=== PATIENT | male | born 1940 | race Caucasian/White ===

== ENCOUNTER 2016-11-28 08:32 | Inpatient (IN) | payer MEDICARE, BC ==
[~2016-11-28 08:32] MED LIST: Buffered Lidocaine 0.9% SYRIN* 5 ML/SYR SYRINGE INTRADERM ONE; Buffered Lidocaine 0.9% SYRIN* 5 ML/SYR SYRINGE ONE; NS 0.9% 1000 ML* 1,000 ML IV SCH; ceFAZolin 2 GM PREMIX(*) 2 GM/50 ML BAG IVPB ONE
[2016-11-28] MEDS ORDERED: Midazolam* 1 MG/ML 2 ML VIAL (2 MG) ONE ×3 (09:02→11:55)
[2016-11-28] MEDS ORDERED: fentaNYL* 50 MCG/ML 2 ML VIAL (100 MCG VIAL) ONE (09:02)
[2016-11-28] MEDS ORDERED: Bupivacaine 0.25% W/EPI* 50 ML VIAL ONE (10:18)
[2016-11-28] MEDS ORDERED: Morphine PF AMP (0.5MG/ML)* 5 MG/10 ML AMP ONE (10:58)
[2016-11-28] MEDS ORDERED: Bupivacaine 0.5% SDV PF* 30 ML VIAL ONE (11:14)
[2016-11-28] MEDS ORDERED: Famotidine IV* 10 MG/ML 2 ML (20 mg) ONE (11:14)
[2016-11-28] MEDS ORDERED: Dexmedetomidine* 200 MCG/2 ML 2 ML VIAL ONE (11:14)
[2016-11-28] MEDS ORDERED: diPHENhydraMINE IV* 50 MG/ML 1 ml VIAL (BENADRYL) ONE (11:14)
[2016-11-28] MEDS ORDERED: Dexamethasone IV* 4 MG/ML 1 ML (4 MG) ONE (11:20)
[2016-11-28] MEDS ORDERED: Ketorolac INJ* 30 MG/ML 1 ML VIAL ONE (11:20)
[2016-11-28] MEDS ORDERED: Hetastarch in NS* 500 ML IV ONE (11:26)
[2016-11-28] MEDS ORDERED: Bupivacaine 0.25% EPI 200,000* 30 ML SDV ONE (11:34)
[2016-11-28] MEDS ORDERED: HYDROmorphone* 1 MG/ML 1 ML SYR IV PRN (12:14)
[2016-11-28] MEDS ORDERED: Acetaminophen TAB* 325 MG PO PRN (12:14)
[2016-11-28] MEDS ORDERED: fentaNYL* 50 MCG/ML 2 ML VIAL (100 MCG VIAL) IV PRN (12:14)
[2016-11-28] MEDS ORDERED: Ondansetron INJ* 2 MG/ML VIAL IV PRN ×2 (12:14→12:17)
[2016-11-28] MEDS ORDERED: Scopolomine PATCH Remove* 1 NOTE MISC PATCH OFF PRN (12:17)
[2016-11-28] MEDS ORDERED: Ketorolac INJ* 30 MG/ML 1 ML VIAL IV PRN (12:17)
[2016-11-28] MEDS ORDERED: HYDROcodone/ACETAMIN 5-325 MG* 1 TAB PO PRN ×2 (12:17)
[2016-11-28] MEDS ORDERED: Naloxone* 0.4 MG/ML 1 ML VIAL IV PRN (12:17)
[2016-11-28] MEDS ORDERED: Scopolamine 1.5 mg* PATCH TRANSDERM PRN (12:17)
[2016-11-28] MEDS ORDERED: DiMENhydriNATE IV* 50 MG/ML VIAL IV PUSH PRN (12:17)
[2016-11-28] MEDS ORDERED: Polyethylene Glycol 3350* 17 GM PACKET PO PRN (13:26)
[2016-11-28] MEDS ORDERED: Bisacodyl SUPP* 10 MG SUPP PR PRN (13:26)
[2016-11-28] MEDS ORDERED: ceFAZolin VIAL(*) 1 GM in NS 0.9% 50 ML* 50 ML IVPB SCH (14:00)
--- NOTE | 2016-11-28 14:48 | RAD ---
INDICATION: Left total knee replacement COMPARISON: October 12, 2016 TECHNIQUE: AP and lateral views were obtained. FINDINGS: There is left knee arthroplasty. Both tibial and femoral components appear well seated. There are anterior skin anna with overlying cooling jacket. IMPRESSION: POSTOPERATIVE LEFT KNEE ARTHROPLASTY.
[2016-11-28] MEDS: D5W 1/2 NS 1000 ML BAG* 1,000 ML IV SCH (15:55)
[2016-11-28] MEDS: Acetaminophen TAB* 325 MG PO SCH ×3 (16:17→20:46)
[2016-11-28] MEDS ORDERED: Warfarin TAB(*) 10 MG PO ONE (17:00)
[2016-11-28] MEDS: ceFAZolin VIAL(*) 1 GM in NS 0.9% 50 ML* 50 ML IVPB SCH (19:09)
[2016-11-28] MEDS: Lansoprazole SOLUTAB* 30 MG PO SCH (20:46)
[2016-11-28] MEDS: Docusate CAP* 100 MG PO SCH (20:46)
[2016-11-28] MEDS: Metoprolol Succinate XL TAB* 25 MG PO SCH (20:47)
[2016-11-28] MEDS: Magnesium Hydroxide LIQ* 30 ML UDC PO SCH (20:49)
[2016-11-28] MEDS ORDERED: Metoprolol Succinate XL TAB* 25 MG PO SCH (21:00)
[2016-11-29] MEDS: Acetaminophen TAB* 325 MG PO SCH (00:13)
--- NOTE | 2016-11-29 01:23 | CONS ---
CC: Dr. Carlton Kearns; Dr. Bai * CONSULTATION REPORT: DATE OF CONSULT: 11/28/16 PRIMARY CARE PROVIDER: Dr. Carlton Kearns. PROVIDER REQUESTING CONSULTATION: Dr. Indio Bai. ATTENDING PHYSICIAN: Dr. Cindy Varma (dictated by Rocío Emmanuel NP). REASON FOR CONSULT: Co-medical management in a patient with a history of hypertension and chronic atrial fibrillation. HISTORY OF PRESENT ILLNESS: Mr. Ocampo is a 76-year-old male with past medical history significant for GERD, chronic atrial fibrillation, cardiomyopathy and osteoarthritis, who presents to the hospital today for an elective left total knee replacement with Dr. Bai. Mr. Ocampo states that prior to coming to the hospital today, he has been in his usual state of health. He denies any fever, chills, chest pain, shortness of breath, urinary symptoms, nausea, vomiting or diarrhea. The patient states he has been in good state of health with the exception of left knee pain. The hospitalists were asked to evaluate the patient in consultation to assist with co-medical management during his hospitalization. PAST MEDICAL HISTORY: 1. Gastroesophageal reflux disease. 2. Chronic atrial fibrillation. 3. Cardiomyopathy. 4. Osteoarthritis. PAST SURGICAL HISTORY: 1. Right knee bone spur removal as a child in 1958. 2. Status post right shoulder spur removal in 1996. 3. Status post basal cell carcinoma excision from his back in 2007. HOME MEDICATIONS: Include: 1. Vitamin D3 1000 units oral daily. 2. Toprol-XL 12.5 mg oral twice daily. 3. Prevacid 30 mg oral twice daily. 4. Multivitamin one tablet oral daily. 5. Glucosamine chondroitin 1500 mg oral daily. 6. Fish oil 1000 mg oral daily. 7. Vitamin B12 one tablet oral daily. 8. Warfarin 10 mg on Monday, Monday, Monday, Monday, and Monday , and 5 mg on Fridays. ALLERGIES: CODEINE and SHELLFISH. FAMILY HISTORY: The patient denies any family history of coronary artery disease and diabetes mellitus. His mother had a history of leukemia diagnosed in her 90s. The patient's mother may have also had a history of heart disease. SOCIAL HISTORY: The patient is a former smoker. He quit smoking approximately 40 years ago. The patient occasionally drinks a glass of wine. He denies recreational drug use. The patient's Yovvone Saulsgiver will be his surrogate decision maker in the event he is unable to make decisions for himself. REVIEW OF SYSTEMS: I performed a 14-point review of systems. All the pertinent positives and negatives are mentioned in the history of present illness. The remaining review of systems is negative. PHYSICAL EXAM: Vital Signs: Temperature 96.8, heart rate 67, respiratory rate 16, O2 sat 100% on 2 liters via nasal cannula, blood pressure 100/68. General Appearance: The patient is alert, pleasant, appears to be in no acute distress. HEENT: Normocephalic, atraumatic. Pupils are equal and reactive to light. Extraocular movements are intact. Respiratory: There is no accessory muscle use and the lungs are clear to auscultation bilaterally. Cardiovascular : Irregular rate and rhythm. S1 and S2 present. There are no murmurs, rubs, or gallops heard. Abdomen: Soft, nontender, nondistended. There is positive bowel sounds x4. Extremities: There is no lower extremity edema. DP and PT pulses are 2+ and symmetric. Musculoskeletal: There is no clubbing or cyanosis noted. The patient exhibits good strength in all extremities. Neurological: The patient is alert and oriented x4. Cranial nerves II through XII are grossly intact. Psychological: The patient is calm and cooperative. Skin: There are no rashes or abnormalities seen. The patient does have a dressing to his left knee that is clean, dry and intact. DIAGNOSTIC STUDIES/LAB DATA: Preoperative labs from 11/17/16 show a urinalysis significant for 1+ leukocyte esterase, 1+ wbc's and 2+ rbc's and no growth of the urine culture. Sodium 134, potassium 4.5, chloride 104, CO2 30, BUN 20, creatinine 0.97, glucose 98. White blood cell count 7.0, hemoglobin 14.8, hematocrit 45, and platelet count 172. Chest x-ray from 11/17/16. Radiologist' s impression: No cardiopulmonary disease noted. EKG shows an atrial fibrillation with a rate of 79. IMPRESSION: Mr. Ocampo is a 76-year-old male with past medical history significant for cardiomyopathy, GERD, chronic atrial fibrillation and osteoarthritis, who presents to the hospital today for an elective left total knee arthroplasty with Dr. Bai. Hospitalists were asked to assist with co- medical management of this patient during his hospitalization. ASSESSMENT AND PLAN: 1. Osteoarthritis. Status post left total knee arthroplasty, postop day. Management per Orthopedic Surgery. The patient's H and H will be trended. He will have a urinary catheter in place until postop day 1. He will have Occupational Therapy and Physical Therapy. He will have pain management. 2. Chronic atrial fibrillation. The patient's rate is controlled. He will be continued on his home Toprol. The patient is anticoagulated at home on warfarin. This will be continued. 3. Gastroesophageal reflux disease. The patient will be continued on PPI. 4. Fluids, electrolytes and nutrition: The patient will be on a regular diet. 5. Code status. Full code. 6. DVT prophylaxis. The patient will be on warfarin. 7. Disposition. Inpatient with disposition per Orthopedic Surgery. TIME SPENT: The time for this admission was 60 minutes, greater than half that was spent with the patient and discussing medications, past medical history , the events leading up to his arrival today, and performing a physical examination. Reviewed by BERHANE FAIRBANKS 11/29/16 1825 [id number]/[facility] #: [id number] CALVIN
--- NOTE | 2016-11-29 02:13 | OP ---
DATE OF OPERATION: 11/28/16 - ROOM #349 DATE OF : 44 SURGEON: Indio Bai MD. INDUSTRIAL AUTOMATION ENGINEER: Liberty Covarrubias RPA. ANESTHESIOLOGIST: Dr. West ANESTHESIA: Spinal/regional/sedation. PRE-OP DIAGNOSIS: Osteoarthritis, left knee. POST-OP DIAGNOSIS: Osteoarthritis, left knee. OPERATIVE PROCEDURE: Left total knee arthroplasty. ESTIMATED BLOOD LOSS: Less than 50 cc. COMPLICATIONS: None. HARDWARE: Ayo Persona #9 femur, G tibia, 10 mm polyethylene, 32 mm all polyethylene patellar button. INDICATION: Mr. Ocampo is a 76-year-old male who has been having more and more troubles with left knee pain. He has significant arthritic change where he is end-stage being [id number] in the medial compartment of the knee and had undergone an MRI, which also showed complete loss of the medial facet on the underside of the patella; therefore, I discussed with him that he was not a good candidate for just a medial compartment arthroplasty, but rather a total knee arthroplasty should work better to improve his pain and his function. Risks of surgery such as infection, scar formation, stiffness, DVT, pulmonary embolism, hardware failure, and continued pain were some of the risks discussed. He had been declared medically optimized and wished to proceed. DESCRIPTION OF PROCEDURE: The patient had repeat blood work done as he was given a full dose of Lovenox yesterday, and PT and PTT were both checked, these came back as normal. He then had a femoral nerve block done in the holding area and was brought back to the OR. Spinal anesthesia was introduced. Downey catheter was placed. A tourniquet was placed over the proximal left thigh and was used during the case. Total tourniquet time would be 72 minutes. Left knee was prepped and then draped. Liberty Covarrubias RPA, was there from positioning to the approach to placement of the components to closure and was instrumental during the case. The case could not have been done without her. Esmarch was used to exsanguinate the leg and the tourniquet was raised. Midline incision was made, centered above the patella beginning just on the medial side of the tibial tubercle and coming upwards for about 4 cm past the patella. Incision was carried down through the skin and subcutaneous tissues. Small bleeders encountered were ligated using electrocautery. Sharp and what I thought was parapatellar arthrotomy was made but I actually came into the substance and this turned more into a mid vastus approach. Quite a bit of clear yellowish joint fluid was encountered. Fat pad was sharply excised and the soft tissues were sharply elevated from the medial side of the tibia. Patella measured 21 mm in thickness and a nice 7 mm cut was taken. Patella was then easily subluxated laterally. The knee was flexed up. Nice exposure of the distal femur was obtained. Step drill was used to open the femoral canal and the intramedullary guide was placed. Guide was adjusted until appeared parallel with the epicondyles and I was a little unhappy posteriorly as the posterior condyle on the lateral side seemed to be a bit under-developed. Distal femoral cutting guide was then pinned into place and intramedullary guide was removed. It appeared a nice cut was taken but I did not finish the femur at this point. Rather, attention was turned to the tibia. Step drill was used to open the tibial canal and the intramedullary guide was placed. Outrigger was placed and adjusted until it appeared it would take 2 mm from the worn medial side. Cutting guide was then pinned into place and a proximal tibial cut was taken. Cut needed to be redone as he had such hard bone that the saw blade skived upwards on the medial side. With a 10 block, he was snug on that medial side, but it appeared that my tibial cut was quite good. Similarly, the femoral cut was also good. Attention was returned to the femur. Femur was sized and it sat nicely for a 9. Superior drill hole was run and this came out nicely on the top side of the femoral cortex. Anterior and posterior femoral cuts followed by the chamfer cut were all taken. Attention was returned to the tibia. Tibia was sized and a G seemed to fit quite well. This was pinned into place, the proximal tibia was drilled and then punched. Trial femur was placed and stud holes were drilled and the notch cut was then finished. Trial polyethylene was placed and he came out nicely into full extension, had wonderful stability throughout and flexed quite well. Patellar tracking was fine even without the patellar button. Patella was sized and a 32 seemed to fit quite well. Holes were drilled and trial was snapped into place. Patellar tracking was still fine. Trial instrumentation was removed and the proximal tibia had previously been re-cut just to take an additional millimeter because of the skiving of the saw. Cement was being prepared. Tibia followed by femur and patella were all cemented into place. Excess cement was removed and the cement was allowed to harden. Once the cement had hardened, the knee was searched for additional small pieces of cement and a few were found. Regular polyethylene was then snapped into place with the same wonderful motion and stability. Knee was again copiously pulse lavaged. Parapatellar arthrotomy was repaired using interrupted #1 Vicryl sutures. Tourniquet was let down and no significant bleeding was encountered. Subcutaneous tissue was reapproximated using 2-0 Vicryl. Skin was closed using anna. Sterile dressing and a Cryo/Cuff were applied in the OR. The patient was then awakened, stable on transfer to the recovery room. [id number]/[facility] #: [id number] CALVIN
[2016-11-29] MEDS: D5W 1/2 NS 1000 ML BAG* 1,000 ML IV SCH (02:17)
[2016-11-29] MEDS ORDERED: Ondansetron TAB* 4 MG PO PRN (03:06)
[2016-11-29] MEDS ORDERED: Ondansetron INJ* 2 MG/ML VIAL IV PRN (03:06)
[2016-11-29] MEDS ORDERED: diPHENhydraMINE IV* 50 MG/ML 1 ml VIAL (BENADRYL) IV PRN (03:06)
[2016-11-29] MEDS ORDERED: Morphine INJ* 4 MG/ML 1 ML SYRINGE IV PRN (03:06)
[2016-11-29] MEDS ORDERED: traMADol TAB* 50 MG PO PRN (03:06)
[2016-11-29] MEDS ORDERED: Acetaminophen TAB* 325 MG PO PRN (03:06)
[2016-11-29] MEDS: ceFAZolin VIAL(*) 1 GM in NS 0.9% 50 ML* 50 ML IVPB SCH ×2 (03:17→11:47)
[2016-11-29 05:41] LABS: Hematocrit 33 % (42-52); Hemoglobin 10.8 g/dl (14.0-18.0)
[2016-11-29 05:53] LABS: BUN/Creatinine Ratio 21.4 (8-20); Blood Urea Nitrogen 18 mg/dL (6-24); CO2 Carbon Dioxide 27 mmol/L (22-32); Calcium 7.7 mg/dL (8.6-10.3); Chloride 107 mmol/L (101-111); EGFR African American 114.9 (>60); EGFR Non-African American 89.3 (>60); Glucose 157 mg/dL (70-100); Potassium 4.5 mmol/L (3.5-5.0); Sodium 134 mmol/L (133-145)
[2016-11-29] MEDS: oxyCODONE TAB* 5 MG TAB PO PRN ×2 (07:46→16:52)
[2016-11-29] MEDS: Magnesium Hydroxide LIQ* 30 ML UDC PO SCH ×2 (07:46→21:38)
[2016-11-29] MEDS: Metoprolol Succinate XL TAB* 25 MG PO SCH ×2 (07:46→21:37)
[2016-11-29] MEDS: Lansoprazole SOLUTAB* 30 MG PO SCH ×2 (07:47→21:38)
[2016-11-29] MEDS: Docusate CAP* 100 MG PO SCH ×2 (07:47→21:38)
[2016-11-29] MEDS: Vitamin THERAPEUTIC TAB PO SCH (07:47)
--- NOTE | 2016-11-29 10:37 | PN ---
Progress Note - Progress Note Date of Service: 11/29/16 SOAP: Subjective: pt resting comfortably with no complaints Objective: Vital Signs Temp Pulse Resp BP Pulse Ox 97.5 F 71 16 116/73 100 11/29/16 07:13 11/29/16 07:13 11/29/16 07:46 11/29/16 07:13 11/29/16 07:13 Laboratory Last Values Hgb 10.8 g/dl (14.0-18.0) L 11/29/16 05:26 Hct 33 % (42-52) L 11/29/16 05:26 INR (Anticoag Therapy) 1.15 (0.89-1.11) H 11/29/16 05:26 APTT 37.6 seconds (26.0-36.3) H 11/28/16 09:40 Sodium 134 mmol/L (133-145) 11/29/16 05:26 Potassium 4.5 mmol/L (3.5-5.0) 11/29/16 05:26 Chloride 107 mmol/L (101-111) 11/29/16 05:26 Carbon Dioxide 27 mmol/L (22-32) 11/29/16 05:26 BUN 18 mg/dL (6-24) 11/29/16 05:26 Creatinine 0.84 mg/dL (0.67-1.17) 11/29/16 05:26 Est GFR ( Amer) 114.9 (>60) 11/29/16 05:26 Est GFR (Non-Af Amer) 89.3 (>60) 11/29/16 05:26 BUN/Creatinine Ratio 21.4 (8-20) H 11/29/16 05:26 Glucose 157 mg/dL (70-100) H 11/29/16 05:26 Calcium 7.7 mg/dL (8.6-10.3) L 11/29/16 05:26 Blood Type O Positive 11/28/16 09:11 Antibody Screen Negative 11/28/16 09:11 incision: c/d/i PE: intact B/L LE strengths, 2+ DP pulses, intact sensation Assessment: s/p left TKA, POD#1 Plan: 1) Continue PT-WBAT 2) Ancef for 24 hours post-op 3) Lovenox/ Coumadin/SCD's 4) Hospitalist co-managaing
[2016-11-29] MEDS: oxyCODONE/Acetamin 5/325 MG* TAB PO PRN ×2 (11:47→21:37)
[2016-11-29] MEDS: Heparin VIAL(*) 5000 UNITS/ML VIAL (FIVE THOUSAND) SUBCUT SCH ×2 (13:36→21:37)
--- NOTE | 2016-11-29 16:35 | PN ---
Subjective Date of Service: 11/29/16 Interval History: Patient seen and examined at bedside. Pt states that his pain is controlled. Denies fever, chills, shortness of breath, chest discomfort, N/V/D. Family History: Unchanged from Admission Social History: Unchanged from Admission Past Medical History: Unchanged from Admission Objective Active Medications: Acetaminophen (Tylenol Tab*) 650 mg PO Q4H PRN Reason: pain, fever Bisacodyl (Dulcolax Supp*) 10 mg ID DAILY PRN Reason: constipation Diphenhydramine HCl (Benadryl Iv*) 12.5 mg IV Q6H PRN Reason: PRURITIS Docusate Sodium (Colace Cap*) 100 mg PO BID SABIHA Heparin Sodium (Porcine) (Heparin Vial(*)) 5,000 units SUBCUT Q8HR SABIHA Dextrose/Sodium Chloride (D5w 1/2 Ns 1000 Ml Bag*) 1,000 mls @ 100 mls/hr IV PER RATE SABIHA Lactulose (Lactulose*) 30 ml PO Q6H PRN Reason: constipation Lansoprazole (Prevacid Solutab*) 30 mg PO BID SABIHA Magnesium Hydroxide (Milk Of Magnesia Liq*) 30 ml PO BID SABIHA Metoprolol Succinate (Toprol Xl Tab*) 12.5 mg PO BID SABIHA Morphine Sulfate (Morphine Inj (Syringe)*) 4 mg IV Q2H PRN Reason: PAIN - BREAKTHROUGH Multivitamins (Theragran Tab*) 1 tab PO DAILY SABIHA Ondansetron HCl (Zofran Inj*) 4 mg IV Q6H PRN Reason: nausea Ondansetron HCl (Zofran Tab*) 4 mg PO Q6H PRN Reason: NAUSEA Oxycodone HCl (Roxycodone Tab*) 10 mg PO Q4H PRN Reason: PAIN - MODERATE TO SEVERE Oxycodone/Acetaminophen (Percocet 5/325 Tab*) 1 tab PO Q3H PRN Reason: PAIN - MILD TO MODERATE Pharmacy Profile Note (Scopolomine Patch Remove*) 1 note PATCH OFF .AFTER 72 HOURS PRN Pharmacy Profile Note (Coumadin Daily Reminder*) 1 note FOLLOW UP 1700 SABIHA Polyethylene Glycol/Electrolytes (Miralax*) 17 gm PO DAILY PRN Reason: Constipation Tramadol HCl (Ultram*) 50 mg PO Q6H PRN Reason: PAIN - MILD Vital Signs 07/03/0711/28/16 11/28/16 16:35 17:54 19:42 Temperature 96.5 F 96.8 F 97.4 F Pulse Rate 68 67 83 Respiratory 18 16 16 Rate Blood Pressure 96/74 101/68 98/67 (mmHg) O2 Sat by Pulse 100 100 100 Oximetry 11/28/16 11/28/16 11/28/16 20:59 21:40 23:17 Temperature 96.8 F Pulse Rate 75 Respiratory 16 20 16 Rate Blood Pressure 94/63 (mmHg) O2 Sat by Pulse 100 Oximetry 11/28/16 11/29/16 11/29/16 23:52 01:00 03:24 Temperature 97.8 F 97.6 F Pulse Rate 72 63 Respiratory 16 16 Rate Blood Pressure 101/67 93/54 (mmHg) O2 Sat by Pulse 100 99 100 Oximetry 11/29/16 11/29/16 11/29/16 07:13 07:46 08:00 Temperature 97.5 F Pulse Rate 71 Respiratory 16 16 16 Rate Blood Pressure 116/73 (mmHg) O2 Sat by Pulse 100 Oximetry Oxygen Devices in Use Now: None Appearance: NAD, sitting up in a chair Eyes: PERRLA Ears/Nose/Mouth/Throat: Mucous Membranes Moist Respiratory: Symmetrical Chest Expansion and Respiratory Effort, Clear to Auscultation Cardiovascular: NL Sounds; No Murmurs; No JVD, RRR Abdominal: NL Sounds; No Tenderness; No Distention Extremities: No Edema Skin: No Rash or Ulcers, - - Dressing to left knee clean, dry and intact Neurological: Alert and Oriented x 3, NL Muscle Strength and Tone Lines/Tubes/Other Access: Clean, Dry and Intact Peripheral IV - site benign Nutrition: Taking PO's Result Diagrams: 11/29/16 05:26 11/29/16 05:26 Assess/Plan/Problems-Billing Assessment: Mr. Ocampo is a 76 yo male with PMH significant for cardiomyopathy, GERD, chronic afib, and osteoarthritis who presented to the hospital for an elective left toatl knee arthroplasty with Dr. Bai on 11/28/16. - Patient Problems (1) Status post total left knee replacement Code(s): Z96.652 - PRESENCE OF LEFT ARTIFICIAL KNEE JOINT SNOMED Code(s): 1445909157902 Comment: - POD #1, management per Ortho - T[facility] - Continue pain managment, OT/PT and bowel regime (2) Chronic a-fib Code(s): I48.2 - CHRONIC ATRIAL FIBRILLATION SNOMED Code(s): 960740623 Comment: - Rate controlled - Continue home Toprol and warfarin (3) GERD (gastroesophageal reflux disease) Code(s): K21.9 - GASTRO-ESOPHAGEAL REFLUX DISEASE WITHOUT ESOPHAGITIS SNOMED Code(s): 285172673 Comment: - Continue omeprazole (4) DVT prophylaxis Code(s): WWC8523 - SNOMED Code(s): 715017655 Comment: - Continue warfarin per orthopedics (5) Full code status Code(s): Z78.9 - OTHER SPECIFIED HEALTH STATUS SNOMED Code(s): 653956182 Status and Disposition: Inpatient. Disposition per Orthopedics. Hospitalists will continue to follow.
[2016-11-29] MEDS ORDERED: Warfarin TAB(*) 4 MG PO ONE (17:00)
[2016-11-29] MEDS: Tamsulosin CAP* 0.4 MG PO SCH (19:11)
[2016-11-30] MEDS: oxyCODONE TAB* 5 MG TAB PO PRN (01:27)
[2016-11-30 05:32] LABS: Hematocrit 33 % (42-52); Hemoglobin 10.9 g/dl (14.0-18.0)
[2016-11-30] MEDS: oxyCODONE/Acetamin 5/325 MG* TAB PO PRN ×4 (05:55→17:12)
[2016-11-30] MEDS: Heparin VIAL(*) 5000 UNITS/ML VIAL (FIVE THOUSAND) SUBCUT SCH ×3 (05:56→22:03)
[2016-11-30] MEDS: Docusate CAP* 100 MG PO SCH ×2 (08:57→20:19)
[2016-11-30] MEDS: Vitamin THERAPEUTIC TAB PO SCH (08:57)
[2016-11-30] MEDS: Tamsulosin CAP* 0.4 MG PO SCH (08:57)
[2016-11-30] MEDS: Metoprolol Succinate XL TAB* 25 MG PO SCH ×2 (08:58→22:06)
[2016-11-30] MEDS: Lansoprazole SOLUTAB* 30 MG PO SCH ×2 (08:59→20:03)
[2016-11-30] MEDS: Magnesium Hydroxide LIQ* 30 ML UDC PO SCH ×2 (08:59→20:19)
--- NOTE | 2016-11-30 15:40 | PN ---
Subjective Date of Service: 11/30/16 Interval History: Mr. Ocampo states that he is feeling well today. He denies chest pain, SOB , nausea, or abdominal pain. Family History: Unchanged from Admission Social History: Unchanged from Admission Past Medical History: Unchanged from Admission Objective Active Medications: Acetaminophen (Tylenol Tab*) 650 mg PO Q4H PRN Bisacodyl (Dulcolax Supp*) 10 mg MI DAILY PRN Diphenhydramine HCl (Benadryl Iv*) 12.5 mg IV Q6H PRN Docusate Sodium (Colace Cap*) 100 mg PO BID SABIHA Heparin Sodium (Porcine) (Heparin Vial(*)) 5,000 units SUBCUT Q8HR SABIHA Dextrose/Sodium Chloride (D5w 1/2 Ns 1000 Ml Bag*) 1,000 mls @ 100 mls/hr IV PER RATE SABIHA Lactulose (Lactulose*) 30 ml PO Q6H PRN Lansoprazole (Prevacid Solutab*) 30 mg PO BID SABIHA Magnesium Hydroxide (Milk Of Magnesia Liq*) 30 ml PO BID SABIHA Metoprolol Succinate (Toprol Xl Tab*) 12.5 mg PO BID SABIHA Morphine Sulfate (Morphine Inj (Syringe)*) 4 mg IV Q2H PRN Multivitamins (Theragran Tab*) 1 tab PO DAILY SABIHA Ondansetron HCl (Zofran Inj*) 4 mg IV Q6H PRN Ondansetron HCl (Zofran Tab*) 4 mg PO Q6H PRN Oxycodone HCl (Roxycodone Tab*) 10 mg PO Q4H PRN Oxycodone/Acetaminophen (Percocet 5/325 Tab*) 1 tab PO Q3H PRN Pharmacy Profile Note (Scopolomine Patch Remove*) 1 note PATCH OFF .AFTER 72 HOURS PRN Pharmacy Profile Note (Coumadin Daily Reminder*) 1 note FOLLOW UP 1700 SABIHA Polyethylene Glycol/Electrolytes (Miralax*) 17 gm PO DAILY PRN Tamsulosin HCl (Flomax Cap*) 0.4 mg PO DAILY SABIHA Tramadol HCl (Ultram*) 50 mg PO Q6H PRN Warfarin Sodium (Coumadin Tab(*)) 7.5 mg PO ONCE@1700 ONE Vital Signs 11/29/16 11/29/16 11/29/16 16:37 16:52 18:52 Temperature Pulse Rate Respiratory 16 18 Rate Blood Pressure (mmHg) O2 Sat by Pulse 99 Oximetry 11/29/16 11/29/16 11/29/16 19:20 21:37 22:00 Temperature 98.0 F Pulse Rate 91 Respiratory 20 18 18 Rate Blood Pressure 116/73 (mmHg) O2 Sat by Pulse 98 Oximetry 11/29/16 11/30/16 11/30/16 23:20 00:33 01:27 Temperature 98.9 F Pulse Rate 104 Respiratory 18 18 Rate Blood Pressure 102/59 (mmHg) O2 Sat by Pulse 96 96 Oximetry 11/30/16 11/30/16 11/30/16 01:37 03:21 03:27 Temperature 98.0 F Pulse Rate 94 Respiratory 18 18 20 Rate Blood Pressure 110/66 (mmHg) O2 Sat by Pulse 97 Oximetry 11/30/16 11/30/16 11/30/16 05:55 07:36 07:55 Temperature 98.4 F Pulse Rate 50 Respiratory 18 16 18 Rate Blood Pressure 99/72 (mmHg) O2 Sat by Pulse 97 Oximetry 11/30/16 11/30/16 11/30/16 08:00 08:59 10:46 Temperature 98.6 F Pulse Rate 96 Respiratory 18 20 18 Rate Blood Pressure 102/69 (mmHg) O2 Sat by Pulse 97 94 Oximetry 11/30/16 11/30/16 10:59 13:39 Temperature Pulse Rate Respiratory 18 18 Rate Blood Pressure (mmHg) O2 Sat by Pulse Oximetry Oxygen Devices in Use Now: None Appearance: Male sitting up in chair in NAD Eyes: No Scleral Icterus Ears/Nose/Mouth/Throat: Mucous Membranes Moist Neck: Trachea Midline Respiratory: Symmetrical Chest Expansion and Respiratory Effort, Clear to Auscultation Cardiovascular: NL Sounds; No Murmurs; No JVD, No Edema Abdominal: NL Sounds; No Tenderness; No Distention Lymphatic: No Cervical Adenopathy Extremities: No Edema Skin: No Rash or Ulcers Neurological: Alert and Oriented x 3, NL Muscle Strength and Tone Nutrition: Taking PO's Result Diagrams: 11/30/16 05:23 11/29/16 05:26 Assess/Plan/Problems-Billing Assessment: Mr. Ocampo is a 76 yo male with PMH significant for cardiomyopathy, GERD, chronic afib, and osteoarthritis who presented to the hospital for an elective left total knee arthroplasty with Dr. Bai on 11/28/16. - Patient Problems (1) Status post total left knee replacement Comment: - POD #2, management per Ortho. - Continue pain managment, OT/PT and bowel regimen. (2) Chronic a-fib Comment: - Rate controlled - Continue home Toprol and warfarin (3) GERD (gastroesophageal reflux disease) Comment: - Continue omeprazole (4) DVT prophylaxis Comment: - Continue warfarin per orthopedics (5) Full code status Status and Disposition: Inpatient. Disposition per Orthopedics. Hospitalists will sign off for now but please do not hesitate to contact us with further questions or concerns.
[2016-11-30] MEDS ORDERED: Warfarin TAB(*) 7.5 MG PO ONE (17:00)
[2016-12-01] MEDS: oxyCODONE/Acetamin 5/325 MG* TAB PO PRN ×2 (05:07→09:03)
[2016-12-01] MEDS: Heparin VIAL(*) 5000 UNITS/ML VIAL (FIVE THOUSAND) SUBCUT SCH (05:45)
[2016-12-01 05:55] LABS: Hematocrit 31 % (42-52); Hemoglobin 10.3 g/dl (14.0-18.0)
[2016-12-01 07:27] VITALS: BP 108/71
--- NOTE | 2016-12-01 08:33 | PN ---
Subjective Date of Service: 12/01/16 Family History: Unchanged from Admission Social History: Unchanged from Admission Past Medical History: Unchanged from Admission Objective Active Medications: Acetaminophen (Tylenol Tab*) 650 mg PO Q4H PRN Bisacodyl (Dulcolax Supp*) 10 mg IA DAILY PRN Diphenhydramine HCl (Benadryl Iv*) 12.5 mg IV Q6H PRN Docusate Sodium (Colace Cap*) 100 mg PO BID SABIHA Heparin Sodium (Porcine) (Heparin Vial(*)) 5,000 units SUBCUT Q8HR SABIHA Dextrose/Sodium Chloride (D5w 1/2 Ns 1000 Ml Bag*) 1,000 mls @ 100 mls/hr IV PER RATE SABIHA Lactulose (Lactulose*) 30 ml PO Q6H PRN Lansoprazole (Prevacid Solutab*) 30 mg PO BID SABIHA Magnesium Hydroxide (Milk Of Magnesia Liq*) 30 ml PO BID SABIHA Metoprolol Succinate (Toprol Xl Tab*) 12.5 mg PO BID SABIHA Morphine Sulfate (Morphine Inj (Syringe)*) 4 mg IV Q2H PRN Multivitamins (Theragran Tab*) 1 tab PO DAILY SABIHA Ondansetron HCl (Zofran Inj*) 4 mg IV Q6H PRN Ondansetron HCl (Zofran Tab*) 4 mg PO Q6H PRN Oxycodone HCl (Roxycodone Tab*) 10 mg PO Q4H PRN Oxycodone/Acetaminophen (Percocet 5/325 Tab*) 1 tab PO Q3H PRN Pharmacy Profile Note (Scopolomine Patch Remove*) 1 note PATCH OFF .AFTER 72 HOURS PRN Pharmacy Profile Note (Coumadin Daily Reminder*) 1 note FOLLOW UP 1700 [facility] Polyethylene Glycol/Electrolytes (Miralax*) 17 gm PO DAILY PRN Tamsulosin HCl (Flomax Cap*) 0.4 mg PO DAILY SABIHA Tramadol HCl (Ultram*) 50 mg PO Q6H PRN Vital Signs 11/30/16 11/30/16 11/30/16 08:59 10:46 10:59 Temperature 98.6 F Pulse Rate 96 Respiratory 20 18 18 Rate Blood Pressure 102/69 (mmHg) O2 Sat by Pulse 94 Oximetry 11/30/16 11/30/16 11/30/16 13:39 15:25 15:39 Temperature 98.8 F Pulse Rate 84 Respiratory 18 20 18 Rate Blood Pressure 107/69 (mmHg) O2 Sat by Pulse 98 Oximetry 11/30/16 11/30/16 11/30/16 16:00 17:12 19:12 Temperature Pulse Rate Respiratory 18 16 Rate Blood Pressure (mmHg) O2 Sat by Pulse 94 Oximetry 11/30/16 11/30/16 11/30/16 19:30 19:38 19:57 Temperature 98.3 F Pulse Rate 94 94 Respiratory 16 16 Rate Blood Pressure 103/59 101/62 (mmHg) O2 Sat by Pulse 98 Oximetry 11/30/16 12/01/16 12/01/16 22:04 00:00 00:05 Temperature 98.8 F Pulse Rate 93 98 Respiratory 16 Rate Blood Pressure 107/66 127/66 (mmHg) O2 Sat by Pulse 99 99 Oximetry 12/01/16 12/01/16 12/01/16 03:53 05:07 07:20 Temperature 98.1 F 98.1 F Pulse Rate 93 95 Respiratory 18 16 17 Rate Blood Pressure 136/82 108/71 (mmHg) O2 Sat by Pulse 99 97 Oximetry Oxygen Devices in Use Now: None Result Diagrams: 12/01/16 05:40 11/29/16 05:26 Assess/Plan/Problems-Billing Assessment: Mr. Ocampo is a 76 yo male with PMH significant for cardiomyopathy, GERD, chronic afib, and osteoarthritis who presented to the hospital for an elective left total knee arthroplasty with Dr. Bai on 11/28/16. - Patient Problems (1) Status post total left knee replacement Comment: - POD #3, management per Ortho. - Continue pain managment, OT/PT and bowel regimen. (2) Chronic a-fib Comment: - Rate controlled. - Continue home metoprolol and warfarin. (3) GERD (gastroesophageal reflux disease) Comment: - Continue omeprazole. (4) DVT prophylaxis Comment: - Continue warfarin per ortho. (5) Full code status Status and Disposition: Inpatient. Disposition per Orthopedics. Hospitalists will sign off for now but please do not hesitate to contact us with further questions or concerns.
[2016-12-01] MEDS: Metoprolol Succinate XL TAB* 25 MG PO SCH (09:00)
[2016-12-01] MEDS: Lansoprazole SOLUTAB* 30 MG PO SCH (09:01)
[2016-12-01] MEDS: Vitamin THERAPEUTIC TAB PO SCH (09:02)
[2016-12-01] MEDS: Docusate CAP* 100 MG PO SCH (09:02)
[2016-12-01] MEDS: Tamsulosin CAP* 0.4 MG PO SCH (09:02)
[2016-12-01] MEDS: Magnesium Hydroxide LIQ* 30 ML UDC PO SCH (09:05)
--- NOTE | 2016-12-01 09:09 | PN ---
Progress Note - Progress Note Date of Service: 12/01/16 SOAP: Subjective: 76 y/o male s/p L TKA 11/28/[address] Bai. Patient reports feeling well, no complaints. TOlerating pain medication. no questions/ concerns. Objective: General- Well appearing, NAD MSK- Dressing removed, dried bloody drainage noted, no current draining/ discharge. Deo intact, minimal erythema around staple sites, redressed. + DF/PF L LE, minimal LLE, PT 2+ LLE, sensation grossly intact to light touch. Active Medications Generic Name Dose Route Start Last Admin Trade Name Freq PRN Reason Stop Dose Admin Acetaminophen 650 mg 11/29/16 03:06 11/29/16 07:47 Tylenol Tab* PO 650 mg Q4H PRN Administration pain, fever Bisacodyl 10 mg 11/28/16 13:26 Dulcolax Supp* LA DAILY PRN constipation Diphenhydramine HCl 12.5 mg 11/29/16 03:06 Benadryl Iv* IV Q6H PRN PRURITIS Docusate Sodium 100 mg 11/28/16 21:00 11/30/16 20:19 Colace Cap* PO Not Given BID SABIHA Heparin Sodium (Porcine) 5,000 units 11/29/16 14:00 12/01/16 05:45 Heparin Vial(*) SUBCUT 5,000 units Q8HR SABIHA Administration Dextrose/Sodium Chloride 1,000 mls @ 100 mls/hr 11/28/16 14:00 11/29/16 02:17 D5w 1/2 Ns 1000 Ml Bag* IV 100 mls/hr PER RATE SABIHA Administration Lactulose 30 ml 11/28/16 13:26 Lactulose* PO Q6H PRN constipation Lansoprazole 30 mg 11/28/16 21:00 11/30/16 20:03 Prevacid Solutab* PO 30 mg BID SABIHA Administration Magnesium Hydroxide 30 ml 11/28/16 21:00 11/30/16 20:19 Milk Of Magnesia Liq* PO Not Given BID SABIHA Metoprolol Succinate 12.5 mg 11/28/16 21:00 12/01/16 09:00 Toprol Xl Tab* PO 12.5 mg BID SABIHA Administration Morphine Sulfate 4 mg 11/29/16 03:06 Morphine Inj (Syringe)* IV Q2H PRN PAIN - BREAKTHROUGH Multivitamins 1 tab 11/29/16 09:00 11/30/16 08:57 Theragran Tab* PO 1 tab DAILY SABIHA Administration Ondansetron HCl 4 mg 11/29/16 03:06 Zofran Inj* IV Q6H PRN nausea Ondansetron HCl 4 mg 11/29/16 03:06 Zofran Tab* PO Q6H PRN NAUSEA Oxycodone HCl 10 mg 11/29/16 03:06 11/30/16 01:27 Roxycodone Tab* PO 10 mg Q4H PRN Administration PAIN - MODERATE TO SEVERE Oxycodone/Acetaminophen 1 tab 11/29/16 03:06 12/01/16 05:07 Percocet 5/325 Tab* PO 1 tab Q3H PRN Administration PAIN - MILD TO MODERATE Pharmacy Profile Note 1 note 11/28/16 12:17 Scopolomine Patch Remove* PATCH OFF 12/01/16 12:18 .AFTER 72 HOURS PRN nausea Pharmacy Profile Note 1 note 11/28/16 17:00 11/30/16 17:00 Coumadin Daily Reminder* FOLLOW UP 1 note 1700 SABIHA Administration Polyethylene Glycol/Electrolytes 17 gm 11/28/16 13:26 Miralax* PO DAILY PRN Constipation Tamsulosin HCl 0.4 mg 11/29/16 18:00 11/30/16 08:57 Flomax Cap* PO 0.4 mg DAILY SABIHA Administration Tramadol HCl 50 mg 11/29/16 03:06 Ultram* PO Q6H PRN PAIN - MILD Laboratory Results - last 24 hr 12/01/16 12/01/16 05:40 05:40 Hgb 10.3 L Hct 31 L INR (Anticoag Therapy) 1.31 H Assessment: 76 y/o male s/p L TKA 11/28/[address] Bai. Plan: - DVT prophylaxis- coumadin, lovenox today, continue home dose - Continue PT - VNS set up - Follow up with Dr. Bai Vital Signs Temp 98.1 F 12/01/16 07:20 Pulse 95 12/01/16 07:20 Resp 17 12/01/16 07:20 BP 108/71 12/01/16 07:20 Pulse Ox 97 12/01/16 07:20 Intake & Output 11/30/16 12/01/16 12/01/16 18:59 06:59 18:59 Intake Total 985 1300 Output Total 400 2125 Balance 585 -825 Intake: Oral 985 1300 Output: Urine 400 2125 Other: Estimated Void Medium # Bowel Movements 0 # Voids 3
--- NOTE | 2016-12-04 21:55 | DS ---
Discharge Summary Date of Admission: 11/28/2016 Date of Discharge: 12/01/2016 Provider: Dr. Bai Principle Diagnosis: Left knee pain Secondary Diagnoses: See H&P Principle procedure: Left knee arthroplasty Consultations: Physical therapy, occupational therapy HPI: Refer to H&P Hospital Course: The patient was admitted on 11/28/2016 and underwent an uncomplicated left knee arthroplasty. He tolerated the procedure well and there were no complications. The patient had spinal anesthesia and was quite comfortable in the immediate postoperative period. On POD#1 the patients H&H was 10.8 and 33. The dressing was CDI, he was neurovascularly intact with good sensation distal to the knee. He could demonstrate dorsi and plantar flexion with good strength. Participation in physical and occupational therapy was begun. Pain was controlled with PO Percocet. On POD#2 the urinary catheter was discontinued and the patient was able to void spontaneously. The dressing was changed and the wound was found to be benign with minimal drainage and erythema. Vital signs were stable and the patient was afebrile. POD#3 bowel and bladder had normalized and the patient was cleared by physical therapy for safe discharge to home with services. He will continue with the exercises learned with physical therapy and arrangements were made for visiting home physical therapy as well. At discharge the H&H was 10.3 and 31, vital signs were stable and the INR value was 1.3. The patient was discharged with his prior home dose of Coumadin 5-10mg. The INR will be monitored on Mondays and and the Coumadin dose adjusted accordingly. The patient will resume the home medications as indicated in the discharge instructions. [place] and/ or sutures will be removed in 10-14 days. Medications at discharge: Medication Instructions Recorded Confirmed Type Calcium Citrate-Vitamin D [Calcium 1 tab PO QPM 09/12/12 11/28/16 History Citrate + D] Diphenhydramine-Acetaminophen 1 tab PO BEDTIME PRN 09/12/12 11/28/16 History [Tylenol Pm Extra Strength] Rnsgricuovg-[id number]-Fsv C- 1 cap PO QPM 09/12/12 11/28/16 History [Glucosamine 1500 Complex] Lansoprazole SOLUTAB* [Prevacid 30 mg PO BID 09/12/12 11/28/16 History Solutab*] Metoprolol Succinate XL TAB* 12.5 mg PO BID 09/12/12 11/28/16 History [Toprol XL TAB*] Multiple Vitamin [Multivitamins] 1 cap PO QAM 09/12/12 11/28/16 History [place]-3 Fatty Acids [Fish Oil] 1,000 mg PO BID 09/12/12 11/28/16 History Vitamins A & D [Vitamin A & D] 1 cap PO DAILY 09/12/12 11/28/16 History Cholecalciferol TAB* [Vitamin D 1,000 unit PO QAM 05/05/14 11/28/16 History TAB*] Cyanocobalamin TAB* [Vitamin B12 500 mcg PO QPM 11/17/16 11/28/16 History TAB*] Acetaminophen TAB* [Tylenol TAB*] 650 mg PO Q6HR #0 tab 12/01/16 Rx Docusate CAP* [Colace Cap*] 100 mg PO BID cap 12/01/16 Rx Tramadol HCl [Ultram] 50 mg PO Q6H PRN #60 tab MDD 4 12/01/16 Rx Warfarin TAB(*) [Coumadin TAB(*)] 10 mg PO SUMOTUWETHSA #60 12/01/16 11/28/16 Rx oxyCODONE TAB* [Roxycodone TAB 5 5 mg PO Q4H PRN #0 tab MDD 12 12/01/16 Rx mg*] - Coumadin Dosin/13- 10mg 12/02- 10mg 12/03- 10mg 12/04-10mg 12/05- INR check Condition: Stable Disposition: Home with home health PT and PT/INR draws on Monday and Follow up: Patient will follow up with Dr. Bai in 3-4 weeks at [facility] Orthopedics
== END 2016-12-01 11:00 | disposition home health service (06) | DRG 470 ==
LOC: AA 08:32 → SSU 15:39
PROVIDERS: ADMIT Orthopaedic Surgery; ATTEND Orthopaedic Surgery
PROC: 0SRD0J9 Replacement of Left Knee Joint with Synthetic Substitute, Cemented, Open Approach (ICD-10-PCS; principal; 2016-11-28 10:00)
DX: M17.12 Unilateral primary osteoarthritis, left knee (principal); I42.9 Cardiomyopathy, unspecified; I27.2 Other secondary pulmonary hypertension; S83.242A Other tear of medial meniscus, current injury, left knee, initial encounter; I48.2 Chronic atrial fibrillation; I10 Essential (primary) hypertension; K21.9 Gastro-esophageal reflux disease without esophagitis; I08.3 Combined rheumatic disorders of mitral, aortic and tricuspid valves; Z79.01 Long term (current) use of anticoagulants; Z88.5 Allergy status to narcotic agent; Z91.013 Allergy to seafood; Z87.891 Personal history of nicotine dependence; Z85.828 Personal history of other malignant neoplasm of skin; Z82.49 Family history of ischemic heart disease and other diseases of the circulatory system; Z80.6 Family history of leukemia
CPT/HCPCS: 36415; 80048; 85014; 85018; 85610; 85730; 86850; 86900; 86901; 94760; A9270-GY; C1776; J0690; J1100; J1200; J1644; J1885; J2250; J3010

== ENCOUNTER 2017-02-07 11:32 | Day surgery (SDC) | payer MEDICARE, OTHER ==
[~2017-02-07 11:32] MED LIST changes: +Acetaminophen TAB* 325 MG PO PRN; -Buffered Lidocaine 0.9% SYRIN* 5 ML/SYR SYRINGE ONE; -NS 0.9% 1000 ML* 1,000 ML IV SCH; -ceFAZolin 2 GM PREMIX(*) 2 GM/50 ML BAG IVPB ONE
[2017-02-07] MEDS ORDERED: fentaNYL* 50 MCG/ML 2 ML VIAL (100 MCG VIAL) ONE (12:37)
[2017-02-07] MEDS ORDERED: Midazolam* 1 MG/ML 2 ML VIAL (2 MG) ONE (12:37)
[2017-02-07] MEDS ORDERED: Cyclopentolate 1% OPTH.SOL* 2 ML BTL ONE (13:25)
[2017-02-07] MEDS ORDERED: Tetracaine 0.5% OPTH.SOL 4 ML* 1 DROP BTL ONE (13:25)
[2017-02-07] MEDS ORDERED: Ketorolac 0.5% OPHTH (NF) 0.5 % 5 ML BTL ONE (13:25)
[2017-02-07] MEDS ORDERED: Neomycin/Polymy/Dex OPHTH.OIN* 3.5 GM ONE (13:25)
[2017-02-07] MEDS ORDERED: Tropicamide 1% OPTH.SOL* BTL ONE (13:25)
[2017-02-07] MEDS ORDERED: Phenylephrine 2.5% OPTH.SOL* 2 ML BTL ONE (13:25)
[2017-02-07] MEDS ORDERED: Buffered Lidocaine 0.9% SYRIN* 5 ML/SYR SYRINGE ONE (13:25)
[2017-02-07] MEDS ORDERED: Lidocaine 1% MPF* 2 ML VIAL ONE (13:25)
[2017-02-07 14:19] VITALS: BP 103/66
--- NOTE | 2017-02-08 05:22 | OP ---
DATE OF OPERATION: 02/07/17 [facility] DATE OF : 44 SURGEON: Dr. Mikhail Potts. HAND DRY CLEANER: None. ANESTHESIA: Topical with intravenous sedation. PRE-OP DIAGNOSIS: Cataract, right eye. POST-OP DIAGNOSIS: Cataract, right eye. OPERATIVE PROCEDURE: Phacoemulsification and cataract extraction with posterior chamber intraocular lens implant, right eye. COMPLICATIONS: None. BLOOD LOSS: None. DESCRIPTION OF PROCEDURE: The patient was brought to the operating room and received a small amount of intravenous sedation. A drop of Tetracaine was placed in his right eye. He was prepped and draped in the usual sterile fashion for ophthalmic surgery and attention was directed to the right eye where a speculum was placed. A paracentesis was created at the 11 o'clock position and 0.1 cc of 1 percent preservative-free Lidocaine was injected into the anterior chamber followed by DisCoVisc. The eye was digitally stabilized while a 2.75 mm keratome was used to create a triplanar clear corneal incision at the 9 o'clock position. A continuous curvilinear capsulorrhexis was created with a cystotome and Utrata forceps. BSS on a cannula was used to hydrodissect the lens from the capsule. Phacoemulsification was performed in a divide-and- conquer technique to create four fragments which were removed. Residual cortical material was removed with irrigation and aspiration. DisCoVisc was used to inflate the capsular bag and an AU00T0 18.0 diopter lens was folded and inserted into the capsular bag. DisCoVisc was removed using irrigation and aspiration. BSS on a cannula was used to hydrate the corneal stroma and seal the wound. At the end of the case the pupil was round and the lens was centered. The eye was of normal pressure and the wound was water tight. The speculum was removed and topical Maxitrol ointment was placed on the surface of the eye. The eye was closed, patched and shielded and the patient was sent to the recovery room in stable condition with post operative instructions and follow-up appointment given. [id number]/[facility] #: [id number] [facility]
== END 2017-02-07 14:09 | disposition home or self-care (01) ==
LOC: OREAST 11:32
PROVIDERS: ATTEND Ophthalmology
DX: H25.041 Posterior subcapsular polar age-related cataract, right eye (principal); H25.11 Age-related nuclear cataract, right eye; I48.2 Chronic atrial fibrillation; Z79.01 Long term (current) use of anticoagulants; K21.9 Gastro-esophageal reflux disease without esophagitis; M19.91 Primary osteoarthritis, unspecified site; Z88.5 Allergy status to narcotic agent; Z85.828 Personal history of other malignant neoplasm of skin; Z87.891 Personal history of nicotine dependence
CPT/HCPCS: A9270-GY; J2250; J3010; V2632

== ENCOUNTER 2017-02-14 07:09 | Day surgery (SDC) | payer MEDICARE, OTHER ==
[2017-02-14] MEDS ORDERED: Midazolam* 1 MG/ML 5 ML VIAL (5 MG) ONE (07:21)
[2017-02-14] MEDS ORDERED: fentaNYL* 50 MCG/ML 2 ML VIAL (100 MCG VIAL) ONE (07:21)
[2017-02-14 09:46] VITALS: BP 104/68
[2017-02-14] MEDS ORDERED: Lidocaine 1% MPF* 2 ML VIAL ONE (11:14)
[2017-02-14] MEDS ORDERED: Neomycin/Polymy/Dex OPHTH.OIN* 3.5 GM ONE (11:14)
[2017-02-14] MEDS ORDERED: Tetracaine 0.5% OPTH.SOL 4 ML* 1 DROP BTL ONE (11:14)
[2017-02-14] MEDS ORDERED: Buffered Lidocaine 0.9% SYRIN* 5 ML/SYR SYRINGE ONE (11:14)
[2017-02-14] MEDS ORDERED: Phenylephrine 2.5% OPTH.SOL* 2 ML BTL ONE (11:14)
[2017-02-14] MEDS ORDERED: Cyclopentolate 1% OPTH.SOL* 2 ML BTL ONE (11:14)
[2017-02-14] MEDS ORDERED: Flurbiprofen 0.03% OPTH.SOL* 2.5 ML BTL ONE (11:14)
[2017-02-14] MEDS ORDERED: Tropicamide 1% OPTH.SOL* BTL ONE (11:14)
--- NOTE | 2017-02-14 19:02 | OP ---
OPERATIVE REPORT: DATE OF OPERATION: 02/14/17 DATE OF : 44 SURGEON: Dr. Mikhail Potts. SUPERVISOR ENGRAVING: None. ANESTHESIA: Topical with intravenous sedation. PRE-OP DIAGNOSIS: Cataract, left eye. POST-OP DIAGNOSIS: Cataract, left eye. OPERATIVE PROCEDURE: Phacoemulsification and cataract extraction with posterior chamber intraocular lens implant, left eye. COMPLICATIONS: None. BLOOD LOSS: None. OPERATIVE FINDINGS: The patient was brought to the operating room and received a small amount of in travenous sedation. A drop of Tetracaine was placed in his left eye. He was prepped and draped in the usual sterile fashion for ophthalmic surgery and attention was directed to the left eye where a speculum was placed. A paracentesis was created at the 5 o'clock position and 0.1 cc of 1 percent p reservative-free Lidocaine was injected into the anterior chamber followed by DisCoVisc. The eye wa s digitally stabilized while a 2.75 mm keratome was used to create a triplanar clear corneal incisio n at the 3 o'clock position. A continuous curvilinear capsulorrhexis was created with a cystotome a nd Utrata forceps. BSS on a cannula was used to hydrodissect the lens from the capsule. Phacoemuls ification was performed in a [id number] technique to create four fragments which were remove d. Residual cortical material was removed with irrigation and aspiration. DisCoVisc was used to inf late the capsular bag and an AU00T0 17.5 diopter lens was folded and inserted into the capsular bag. DisCoVisc was removed using irrigation and aspiration. BSS on a cannula was used to hydrate the c orneal stroma and seal the wound. At the end of the case the pupil was round and the lens was cente red. The eye was of normal pressure and the wound was water tight. The speculum was removed and top ical Maxitrol ointment was placed on the surface of the eye. The eye was closed, patched and shield ed and the patient was sent to the recovery room in stable condition with post operative instruction s and follow-up appointment given. [id number]/[facility] #: [id number]
== END 2017-02-14 09:39 | disposition home or self-care (01) ==
LOC: OREAST 07:09
PROVIDERS: ATTEND Ophthalmology
DX: H25.12 Age-related nuclear cataract, left eye (principal); I48.91 Unspecified atrial fibrillation; Z79.01 Long term (current) use of anticoagulants; Z87.891 Personal history of nicotine dependence
CPT/HCPCS: A9270-GY; J2250; J3010; V2632

== ENCOUNTER 2022-10-06 10:00 | Observation (INO) ==
[~2022-10-06 10:00] MED LIST changes: -Acetaminophen TAB* 325 MG PO PRN; -Buffered Lidocaine 0.9% SYRIN* 5 ML/SYR SYRINGE INTRADERM ONE; +Buffered Lidocaine 1% SYRIN 1 ml INTRADERM ONE; +Lactated Ringers 1000 ml BAG 1,000 ML IV SCH; +Naloxone 0.4 mg VIAL 0.4 mg/ml 1 ml VIAL IV PRN; +Prochlorperazine 5 mg/ml 2 ml VIAL (10 mg) IV PRN; +Tranexamic Acid 1,000 MG in NS 0.9% 50 ML IV ONE; +fentaNYL 100 mcg/2 ml 50 MCG/ML VIAL IV PRN
[2022-10-06] MEDS ORDERED: ceFAZolin 2 GM in NS PREMIX 2 GM/100 ML BAG IVPB ONE (10:14)
[2022-10-06] MEDS ORDERED: Buffered Lidocaine 1% SYRIN 1 ml ONE (10:14)
[2022-10-06 10:49] LABS: Rapid COVID-19 Molecular Undetected (Undetected)
[2022-10-06] MEDS ORDERED: Midazolam 2 mg/2 ml VIAL 1 mg/ml 2 ml VIAL (2 mg) ONE (10:55)
[2022-10-06] MEDS ORDERED: fentaNYL 100 mcg/2 ml 50 MCG/ML VIAL ONE (10:55)
[2022-10-06] MEDS ORDERED: Ropivacaine 5 MG/ML 20 ML VIAL 0.5% (100 MG) ONE (12:28)
[2022-10-06 13:10] LABS: INR 1.17 (0.88-1.18)
[2022-10-06] MEDS ORDERED: Lidocaine 2% PF 5 ML VIAL ONE (13:43)
[2022-10-06] MEDS ORDERED: Dexamethasone IV 4 MG/ML VIAL 1 ml VIAL ONE (13:43)
[2022-10-06] MEDS ORDERED: Propofol 10 MG/ML 20 ML BTL ONE ×2 (13:43→15:14)
[2022-10-06] MEDS ORDERED: Phenylephrine IV 10 MG/ML 1 ml VIAL ONE (13:43)
[2022-10-06] MEDS ORDERED: Ondansetron 4 mg VIAL 2 MG/ML 2 ml VIAL ONE (13:43)
[2022-10-06] MEDS ORDERED: Sodium Chloride 0.9% 10 ML ONE (14:29)
[2022-10-06] MEDS ORDERED: Magnesium Hydroxide LIQ 30 ML UDC PO PRN (14:47)
[2022-10-06] MEDS ORDERED: Morphine 2 MG/ML SYRINGE IV PRN (14:47)
[2022-10-06] MEDS ORDERED: Lactulose 30 ml UDC PO PRN (14:47)
[2022-10-06] MEDS ORDERED: Ondansetron ODT 4 mg TAB 4 MG TAB PO PRN (14:47)
[2022-10-06] MEDS ORDERED: Ondansetron 4 mg VIAL 2 MG/ML 2 ml VIAL IV PRN (14:47)
[2022-10-06] MEDS: Lactated Ringers 1000 ml BAG 1,000 ML IV SCH (19:23)
[2022-10-06] MEDS: Magnesium Hydroxide LIQ 30 ML UDC PO SCH (21:04)
[2022-10-06] MEDS: ceFAZolin 1 GM ADVAN 1 GM in NS 0.9% 50 ML 50 ML IVPB SCH (21:40)
[2022-10-07] MEDS: ceFAZolin 1 GM ADVAN 1 GM in NS 0.9% 50 ML 50 ML IVPB SCH ×2 (05:04→12:06)
[2022-10-07] MEDS: Lactated Ringers 1000 ml BAG 1,000 ML IV SCH (05:05)
[2022-10-07 06:45] LABS: INR 1.29 (0.88-1.18)
[2022-10-07 06:58] LABS: Calcium 8.1 mg/dL (8.6-10.3); Creatinine, Serum 0.85 mg/dL (0.67-1.17); Potassium 4.6 mmol/L (3.5-5.0); eGFR CKD-EPI 87.8 (>60)
[2022-10-07] MEDS ORDERED: Enoxaparin 40 MG/0.4 ML SYR SUBCUT SCH (07:00)
[2022-10-07 07:50] LABS: Hematocrit 30.5 % (38-53); Hemoglobin 10.5 g/dL (13.2-16.3); Mean Platelet Volume 8.4 fL (7.5-11.2); Platelet Count 155 10^3/uL (150-450)
[2022-10-07] MEDS: Magnesium Hydroxide LIQ 30 ML UDC PO SCH (08:18)
[2022-10-07] MEDS ORDERED: Vitamin THERAPEUTIC TAB PO SCH (09:00)
[2022-10-07 10:11] VITALS: BP 95/55
== END 2022-10-07 13:20 | disposition home or self-care (01) ==
LOC: OR 10:00 → SSU 10:00
PROVIDERS: ADMIT Orthopaedic Surgery Adult Reconstructive Orthopaedic Surgery; ATTEND Orthopaedic Surgery Adult Reconstructive Orthopaedic Surgery